=== PATIENT | male | born 1960 | race Caucasian/White ===

== ENCOUNTER 2017-02-26 12:24 | Inpatient (IN) | payer MEDICAID ==
[~2017-02-26] VITALS: Ht 165.1 cm; Wt 71.1 kg
[~2017-02-26 12:24] MED LIST: HYDR12.53
[2017-02-26] MEDS ORDERED: LABETALOL 20 MG/4 ML ONE (13:21)
[2017-02-26] MEDS ORDERED: LABETALOL 5MG/ML, 20ML IVPush ONE (13:30)
[2017-02-26] MEDS ORDERED: ENALAPRILAT 1.25 MG/ML, 2ML IV PRN (14:30)
[2017-02-26] MEDS ORDERED: DOCUSATE CALCIUM 240 MG CAPSULE PO PRN (14:30)
[2017-02-26] MEDS ORDERED: hydrALAzine 20 MG/ML, 1ML IV PRN (14:30)
[2017-02-26] MEDS ORDERED: LABETALOL 5MG/ML, 20ML IVPush PRN (14:30)
[2017-02-26] MEDS: ENOXAPARIN 40 MG/0.4 ML SQ SCH (14:30)
[2017-02-26] MEDS ORDERED: ACETAMINOPHEN 650 MG/20.3 ML UDC PO PRN (14:30)
[2017-02-26] MEDS: NICOTINE 14MG/24 HR PATCH.TD24 TD SCH (14:30)
[2017-02-26 15:30] VITALS: BP 164/81
[2017-02-26] MEDS: POTASSIUM CHLORIDE 20 MEQ in SODIUM CHLORIDE 0.9% 1,000 ML IV SCH (16:05)
[2017-02-26 16:21] VITALS: BP 158/100
[2017-02-26] MEDS: METOPROLOL TARTRATE 25 MG TABLET PO SCH (18:12)
[2017-02-26 20:00] VITALS: BP 163/97
[2017-02-27 02:00] VITALS: BP 165/90
[2017-02-27] MEDS: POTASSIUM CHLORIDE 20 MEQ in SODIUM CHLORIDE 0.9% 1,000 ML IV SCH (02:06)
[2017-02-27 05:17] LABS: BLOOD UREA NITROGEN 27 mg/dL (7-18)
[2017-02-27] MEDS: METOPROLOL TARTRATE 25 MG TABLET PO SCH (06:25)
[2017-02-27] MEDS ORDERED: PANTOPROZOLE 40MG TABLET PO SCH (07:30)
[2017-02-27 09:48] VITALS: BP 171/98
[2017-02-27] MEDS: ENOXAPARIN 40 MG/0.4 ML SQ SCH (13:59)
[2017-02-27] MEDS: NICOTINE 14MG/24 HR PATCH.TD24 TD SCH (13:59)
[2017-02-27] MEDS ORDERED: HYDR25TA6 PO (15:09)
[2017-02-27] MEDS ORDERED: LISI-170 PO (15:09)
[2017-02-27] MEDS ORDERED: ASPI-621 PO (15:21)
[2017-02-27 15:40] VITALS: BP 151/90
[2017-02-27] MEDS ORDERED: SIMVASTATIN 20 MG TABLET PO SCH (21:00)
== END 2017-02-27 16:55 | disposition home or self-care (01) | DRG 304 ==
LOC: ED 12:50 → SUATTDRO 14:05 → 4WST 14:06
PROVIDERS: ADMIT Family Medicine; ATTEND Family Medicine
DX: I16.1 Hypertensive emergency (principal); N17.0 Acute kidney failure with tubular necrosis; G45.9 Transient cerebral ischemic attack, unspecified; I10 Essential (primary) hypertension; F17.210 Nicotine dependence, cigarettes, uncomplicated; Z91.14 Patient's other noncompliance with medication regimen; Z71.6 Tobacco abuse counseling; F12.90 Cannabis use, unspecified, uncomplicated; Z88.6 Allergy status to analgesic agent; Z88.0 Allergy status to penicillin; Z79.899 Other long term (current) drug therapy
CPT/HCPCS: 36415; 70450; 70551; 71010; 80047; 80048; 80061; 85025; 85610; 85730; 93005; 93306; 93880; J1650; J3480; 92523-GN; J7030

== ENCOUNTER 2017-06-05 19:39 | Emergency (ER) | payer MEDICAID ==
[~2017-06-05] VITALS: Ht 165.1 cm; Wt 74.6 kg
[~2017-06-05 19:39] MED LIST changes: +ASPI-621 PO; +HYDR25TA6 PO; +LISI-170 PO
[2017-06-05] MEDS ORDERED: PROPARACAINE OPHTH 0.5%, 15ML ONE (19:41)
[2017-06-05] MEDS ORDERED: FLUORESCEIN OPHTHALMIC 1 MG STRIP ONE (19:41)
[2017-06-05 19:44] VITALS: BP 182/99
== END 2017-06-05 21:02 | disposition home or self-care (01) ==
LOC: ED 20:35
DX: H16.041 Marginal corneal ulcer, right eye (principal); I10 Essential (primary) hypertension; Z86.73 Personal history of transient ischemic attack (TIA), and cerebral infarction without residual deficits; F12.10 Cannabis abuse, uncomplicated; F17.200 Nicotine dependence, unspecified, uncomplicated
CPT/HCPCS: 99283

== ENCOUNTER 2017-06-06 17:33 | Emergency (ER) | payer MEDICAID ==
[~2017-06-06] VITALS: Ht 165.1 cm; Wt 73.7 kg
[2017-06-06 17:35] VITALS: BP 155/96
[2017-06-06] MEDS ORDERED: MOXIFLOXACIN OPHTH O.5%, 3ML RIGHTEYE SCH (18:00)
[2017-06-06] MEDS ORDERED: PROPARACAINE OPHTH 0.5%, 15ML RIGHTEYE STA (18:00)
[2017-06-06] MEDS ORDERED: PROPARACAINE OPHTH 0.5%, 15ML ONE (18:01)
== END 2017-06-06 18:45 | disposition home or self-care (01) ==
LOC: ED 18:29
DX: Z76.0 Encounter for issue of repeat prescription (principal); H16.001 Unspecified corneal ulcer, right eye; I10 Essential (primary) hypertension; F17.210 Nicotine dependence, cigarettes, uncomplicated
CPT/HCPCS: 99283

== ENCOUNTER 2017-08-13 23:56 | Emergency (ER) | payer MEDICAID ==
[~2017-08-13] VITALS: Ht 165.1 cm; Wt 73.0 kg
[2017-08-14] MEDS ORDERED: METHOCARBAMOL 750 MG TABLET PO ONE (00:30)
[2017-08-14] MEDS ORDERED: METHOCARBAMOL 750 MG TABLET ONE (00:50)
[2017-08-14 01:51] VITALS: BP 176/98
== END 2017-08-14 01:55 | disposition home or self-care (01) ==
LOC: ED 23:59
DX: S06.319A Contusion and laceration of right cerebrum with loss of consciousness of unspecified duration, initial encounter (principal); S16.1XXA Strain of muscle, fascia and tendon at neck level, initial encounter; S50.312A Abrasion of left elbow, initial encounter; G89.11 Acute pain due to trauma; I10 Essential (primary) hypertension; Z91.14 Patient's other noncompliance with medication regimen; W01.0XXA Fall on same level from slipping, tripping and stumbling without subsequent striking against object, initial encounter; Y93.55 Activity, bike riding; Y92.410 Unspecified street and highway as the place of occurrence of the external cause; Y99.8 Other external cause status
CPT/HCPCS: 70450; 72125; 99284

== ENCOUNTER 2017-11-24 00:28 | Emergency (ER) | payer SELFPAY ==
[~2017-11-24] VITALS: Ht 165.1 cm; Wt 73.6 kg
[2017-11-24] MEDS ORDERED: LIDOCAINE 1%, 20ML ONE (00:59)
[2017-11-24] MEDS ORDERED: LIDOCAINE 2%, 20ML SQ ONE (01:00)
[2017-11-24 01:44] VITALS: BP 165/89
== END 2017-11-24 01:46 | disposition home or self-care (01) ==
LOC: ED 01:02
DX: S67.192A Crushing injury of right middle finger, initial encounter (principal); L03.011 Cellulitis of right finger; I10 Essential (primary) hypertension; Z86.73 Personal history of transient ischemic attack (TIA), and cerebral infarction without residual deficits; X58.XXXA Exposure to other specified factors, initial encounter; Y93.89 Activity, other specified; Y92.410 Unspecified street and highway as the place of occurrence of the external cause; Y99.8 Other external cause status
CPT/HCPCS: 10060; 99284

== ENCOUNTER 2020-09-09 10:48 | Inpatient (IN) | payer MEDICAID, OTHER ==
[~2020-09-09] VITALS: Ht 165.1 cm; Wt 73.0 kg
[~2020-09-09 10:48] MED LIST changes: -ASPI-621 PO; +ASPI81TA45 PO; +HYDR12.517; -HYDR12.53
[2020-09-09] MEDS ORDERED: SODIUM CHLORIDE FLUSH 10ML SYR IVF ONE (11:30)
[2020-09-09] MEDS ORDERED: ONDANSETRON 2MG/ML, 2ML IVPush ONE (11:30)
[2020-09-09] MEDS ORDERED: MORPHINE SULFATE 4 MG/ML, 1ML IVPush PRN (11:30)
[2020-09-09] MEDS ORDERED: ONDANSETRON 2MG/ML, 2ML ONE (11:33)
[2020-09-09] MEDS ORDERED: MORPHINE SULFATE 4 MG/ML, 1ML ONE (11:33)
--- NOTE | 2020-09-09 11:38 | NUR ---
PT C/O PAIN AND SWELLING TO LEFT HAND. PT STATES HE GOT A SPLINTER FROM A PALLET THAT HE REMOVED HIMSELF. PT STATES PAIN IN THE HAND WOKE HIM UP AT 0300 TODAY. PT ABLE TO MOVE FINGERS ON HIS LEFT HAND. NOTABLE SWELLING TO LEFT HAND.
[2020-09-09 11:42] LABS: ALBUMIN 3.9 g/dL (3.4-5.0); ANION GAP 6 mmol/L (5-15); CALCIUM 9.1 mg/dL (8.5-10.1); CHLORIDE 103 mmol/L (98-107); CREATININE 1.16 mg/dL (0.7-1.3)
[2020-09-09 11:43] LABS: BASOPHILS % (AUTO) 0 % (0-1); EOSINOPHILS % (AUTO) 1 % (1-7); LYMPHOCYTES % (AUTO) 13 % (22-44); MEAN CORPUSCULAR HGB CONC 33.5 g/dL (33.2-36.2); MEAN PLATELET VOLUME 7.8 fL (7.4-10.4); MONOCYTES % (AUTO) 9 % (2-9); NEUTROPHILS % (AUTO) 78 % (42-75); PLATELET COUNT 300 x10^3/uL (130-400); RED BLOOD COUNT 5.01 x10^6/uL (4.38-5.82); RED CELL DISTRIBUTION WIDTH 13.1 % (9.4-14.8)
[2020-09-09 11:44] LABS: MD NO
--- NOTE | 2020-09-09 11:54 | NUR ---
REPORT RECEIVED FROM KISHORE RAMIREZ FOR [facility] PATIENT CARE.
[2020-09-09] MEDS ORDERED: VANCOMYCIN PER PHARMACY MC ONE (12:00)
[2020-09-09] MEDS ORDERED: AMPICILLIN/SULBACTAM 3 GM in SODIUM CHLORIDE 0.9% 100 ML IV ONE (12:00)
[2020-09-09] MEDS ORDERED: VANCOMYCIN 1,700 MG in SODIUM CHLORIDE 0.9% 250 ML IV ONE (12:30)
[2020-09-09] MEDS ORDERED: LISINOPRIL 20 MG TABLET PO ONE (12:30)
[2020-09-09] MEDS ORDERED: HYDROCHLOROTHIAZIDE 25 MG TABLET PO ONE (12:30)
--- NOTE | 2020-09-09 12:36 | NUR ---
REPORT GIVEN TO KISHORE GONZALEZ ON MEDICAL FLOOR.
[2020-09-09] MEDS ORDERED: LISINOPRIL 20 MG TABLET ONE (12:39)
[2020-09-09] MEDS ORDERED: ENALAPRILAT 1.25 MG/ML, 2ML IVPush PRN (13:00)
[2020-09-09] MEDS ORDERED: ACETAMINOPHEN 325 MG TABLET PO PRN (13:00)
[2020-09-09] MEDS ORDERED: HYDROcodone/APAP 5/325 TABLET PO PRN (13:00)
[2020-09-09] MEDS ORDERED: GUAIFENESIN/DM 200-20MG, 10ML UDC PO PRN (13:00)
[2020-09-09] MEDS ORDERED: ONDANSETRON ODT 4 MG PO PRN (13:00)
[2020-09-09] MEDS ORDERED: POLYETHYLENE GLYCOL 17 GM PACKET PO PRN (13:00)
--- NOTE | 2020-09-09 13:09 | NUR ---
PATIENT TRANSFERRED TO MED/SURG VIA GURNEY WITH ENGRAVER WOOD. ALL PATIENT BELONGINGS GATHERED AND TAKEN WITH PATIENT.
[2020-09-09] MEDS ORDERED: VANCOMYCIN PER PHARMACY MC PRN (13:30)
[2020-09-09] MEDS ORDERED: PHARMACOKINETIC MONITORING MC PRN (13:30)
[2020-09-09] MEDS ORDERED: PHARMACOKINETIC CONSULTATION MC ONE (13:30)
[2020-09-09] MEDS: LACTATED RINGERS 1,000 ML IV SCH (13:46)
[2020-09-09] MEDS: HEPARIN 5,000 UNITS/ML, 1ML SQ SCH ×2 (13:47→20:28)
[2020-09-09 13:57] VITALS: BP 137/91
[2020-09-09] MEDS ORDERED: MAALOX/HYOSCYAMINE/LIDOCAINE 45 ML BTL PO PRN (16:00)
[2020-09-09] MEDS: AMPICILLIN/SULBACTAM 3 GM in SODIUM CHLORIDE 0.9% 100 ML IV SCH (17:58)
[2020-09-09 19:39] VITALS: BP 148/76
[2020-09-10 00:24] VITALS: BP 140/78
[2020-09-10] MEDS: AMPICILLIN/SULBACTAM 3 GM in SODIUM CHLORIDE 0.9% 100 ML IV SCH ×2 (00:56→05:44)
[2020-09-10] MEDS: LACTATED RINGERS 1,000 ML IV SCH (00:58)
[2020-09-10] MEDS: HEPARIN 5,000 UNITS/ML, 1ML SQ SCH (05:43)
[2020-09-10 06:42] VITALS: BP 146/92
[2020-09-10 06:43] LABS: BASOPHILS % (AUTO) 1 % (0-1); EOSINOPHILS % (AUTO) 1 % (1-7); LYMPHOCYTES % (AUTO) 14 % (22-44); MEAN CORPUSCULAR HEMOGLOBIN 31.1 pg (27.5-34.5); MEAN CORPUSCULAR HGB CONC 33.7 g/dL (33.2-36.2); MEAN PLATELET VOLUME 7.7 fL (7.4-10.4); MONOCYTES % (AUTO) 10 % (2-9); NEUTROPHILS % (AUTO) 74 % (42-75); PLATELET COUNT 256 x10^3/uL (130-400); RED BLOOD COUNT 4.82 x10^6/uL (4.38-5.82); RED CELL DISTRIBUTION WIDTH 13.4 % (9.4-14.8)
[2020-09-10 06:53] LABS: MD NO
[2020-09-10 06:57] LABS: ANION GAP 6 mmol/L (5-15); CALCIUM 8.8 mg/dL (8.5-10.1); CHLORIDE 103 mmol/L (98-107)
[2020-09-10 07:04] LABS: CHOLESTEROL, TOTAL 110 mg/dL (140-239); CREATININE 1.24 mg/dL (0.7-1.3); HDL CHOL % 51 % (26-37); HDL CHOLESTEROL (DIRECT) 56 mg/dL (40-60); LDL CHOLESTEROL,CALCULATED 41 mg/dL (54-169); LDL/HDL RATIO 0.7 (0.5-3.0); TRIGLYCERIDES 65 mg/dL (50-200); VLDL CHOLESTEROL 13 mg/dL (0-25)
[2020-09-10] MEDS ORDERED: HYDROCHLOROTHIAZIDE 25 MG TABLET PO SCH (09:00)
[2020-09-10] MEDS ORDERED: LISINOPRIL 20 MG TABLET PO SCH (09:00)
[2020-09-10] MEDS ORDERED: HYDROcodone/APAP 5/325 TABLET PO PRN (09:30)
[2020-09-10] MEDS ORDERED: ACETAMINOPHEN 325 MG TABLET PO PRN (09:30)
[2020-09-10] MEDS ORDERED: ENOXAPARIN 40 MG/0.4 ML SQ SCH (09:30)
[2020-09-10] MEDS ORDERED: VANCOMYCIN 1,400 MG in SODIUM CHLORIDE 0.9% 250 ML IV SCH (14:00)
== END 2020-09-10 10:36 | disposition left against medical advice (07) | DRG 603 ==
LOC: ED 11:55 → 3N 12:27 → 4WST 13:19
PROVIDERS: ADMIT Family Medicine; ATTEND Internal Medicine
PROC: 0X9K0ZZ Drainage of Left Hand, Open Approach (ICD-10-PCS; principal; 2020-09-09)
DX: L02.512 Cutaneous abscess of left hand (principal); L03.114 Cellulitis of left upper limb; R65.10 Systemic inflammatory response syndrome (SIRS) of non-infectious origin without acute organ dysfunction; I16.1 Hypertensive emergency; I10 Essential (primary) hypertension; D72.829 Elevated white blood cell count, unspecified; Z88.0 Allergy status to penicillin; Z86.73 Personal history of transient ischemic attack (TIA), and cerebral infarction without residual deficits; Z85.118 Personal history of other malignant neoplasm of bronchus and lung; Z88.6 Allergy status to analgesic agent; Z91.14 Patient's other noncompliance with medication regimen
CPT/HCPCS: 10060; 36415; 71045; 80048; 80061; 82040; 83605; 83735; 84100; 84145; 85025; 87040; 87070; 87081; 87147; 87205; 93005; 93306; 96361; 96374; 99285; G0378; J0295; J1644; J2405; J3370; J2270; J7050; J7120